=== PATIENT | female | born 1990 | race Caucasian/White ===

== ENCOUNTER 2017-04-20 16:40 | Emergency (ER) | payer OTHER ==
[~2017-04-20] VITALS: Ht 167.6 cm; Wt 86.0 kg
[~2017-04-20 16:40] MED LIST: BUSP10TA2 PO; FLUO40CA10 PO; OMEP20CA16 PO
[2017-04-20 16:48] VITALS: Ht 167.6 cm; Wt 86.0 kg
[2017-04-20] MEDS ORDERED: TRIA15CR55 TOP (17:13)
[2017-04-20] MEDS ORDERED: CETI10CA PO (17:13)
--- NOTE | 2017-04-20 17:16 | ERD ---
ER Documentation Chief Complaint Date/Time DATE: 04/20/17 TIME: 17:14 Chief Complaint Complains of redness and swelling at the right leg HPI This 26-year-old female complains of 2 areas of redness and itching on her right leg. She awoke with them today. She is concerned about ticks and she has found a few ticks on her pets. She denies any fevers, vomiting, shortness with chest pain. [place] in the park [place]. ROS All systems reviewed and are negative except as per history of present illness. Medications Home Meds Active Scripts Triamcinolone Acetonide (Triamcinolone Acetonide) 0.1% - 15 Gm Cream.gm., 1 APPLIC TOP QID for 7 Days, #1 TUB Prov:JAEL JAMESON MD 04/20/17 Cetirizine Hcl* (Zyrtec*) 10 Mg Capsule, 10 MG PO DAILY, #15 TAB.CHEW Prov:JAEL JAMESON MD 04/20/17 Reported Medications Fluoxetine Hcl* (Prozac*) 40 Mg Capsule, 40 MG PO HS 08/27/12 Buspirone Hcl* (Buspirone Hcl*) 10 Mg Tablet, 10 MG PO BID 08/27/12 Omeprazole* (Omeprazole*) 20 Mg Capsule.dr, 20 MG PO DAILY 08/27/12 Allergies Allergies: Coded Allergies: aspirin (Verified Allergy, 08/27/12) PMhx/Soc History of Surgery: Yes (EGD,COLONOSCOPY) Anesthesia Reaction: No Hx Neurological Disorder: No Hx Respiratory Disorders: Yes (CHILDHOOD ASTHMA) Hx Cardiac Disorders: No Hx Psychiatric Problems: Yes (ANXIETY, PANIC ATTACKS) Hx Miscellaneous Medical Probl: No Hx Alcohol Use: No Hx Substance Use: No Hx Tobacco Use: No Physical Exam Vitals Vital Signs Date Time Temp Pulse Resp B/P Pulse Ox O2 Delivery O2 Flow Rate FiO2 04/20/17 16:48 98.6 86 20 134/85 98 Physical Exam Const: [] Letter, [id number]. Head: Atraumatic Eyes: Normal Conjunctiva ENT: Normal External Ears, Nose and Mouth. Neck: Full range of motion..~ No meningismus. Resp: Clear to auscultation bilaterally Cardio: Regular rate and rhythm, no murmurs Abd: Soft, non tender, non distended. Normal bowel sounds Skin: No petechiae or rashes. There are 2 areas of circular macules with some redness and slight irritation. Back: No midline or flank tenderness Ext: No cyanosis, or edema Neur: Awake and alert Psych: Normal Mood and Affect Procedures/MDM Patient presents with some itchy red areas on her right calf area suggestive of insect bites with local reaction. Signs or symptoms do not suggest takes, erythema migrans, significant cellulitis, life-threatening rashes, DVT, anaphylaxis. She will be treated with triamcinolone and Zyrtec and further observation at home. The patient was stable with no new complaints during the ER course. Clinically, there is no current evidence to suggest meningitis, sepsis, acute abdomen, pneumonia, acute coronary syndrome, pulmonary embolism, or any other emergent condition appearing to require further evaluation or hospitalization. The patient should certainly return for any new or worsening symptoms per the aftercare instructions. They should otherwise follow-up with her primary care doctor for reevaluation this week. Departure Diagnosis: Primary Impression: Insect bites Encounter type: initial encounter Qualified Code: W57.XXXA - Insect bites, initial encounter Condition: Stable Patient Instructions: Allergic Reaction, Insect (Local) Additional Instructions: Appears to be local reaction to unspecified insect bites. Recheck for new or worsening symptoms or with primary doctor. Apply ice at home. JAEL JAMESON MD Apr 20, 2017 17:16
== END 2017-04-20 17:34 | disposition home or self-care (01) ==
LOC: FTE 16:40
DX: S80.861A Insect bite (nonvenomous), right lower leg, initial encounter (principal); W57.XXXA Bitten or stung by nonvenomous insect and other nonvenomous arthropods, initial encounter; Y92.9 Unspecified place or not applicable
CPT/HCPCS: 99283